=== PATIENT | female | born 1995 | race Caucasian/White ===

== ENCOUNTER 2017-03-07 22:17 | Emergency (ER) | payer OTHER ==
--- NOTE | ~2017-03-07 | CR142 ---
[facility]. [facility] A Service of [facility] & [facility] RADIOLOGY TEXT RESULTS PATIENT: MARIA DEL CARMEN SOLANO LOCATION: SED : [birth year] UNIT #: [id number] AGE: [address]: SINAI ANSARI SEX: F ORDER DR: [id number] [place] [id number] E MR#: [id number] Acc #: [id number] NAME: MARIA DEL CARMEN SOLANO : 1995 SEX: F STUDY DATE/TIME: 03/07/2017 23:42 UNIT: SED ROOM: STUDY DESCRIPTION: CR Hand Min 3 Views Rt Attending Physician: Sinai Ansari Aprn Ordering Physician: Sinai Ansari Aprn Primary Care Physician: Primary Care Physician No MEDICAL IMAGING REPORT This report is preliminary unless electronic signature is present. EXAM Right hand, 03/07/2017 HISTORY 21-year-old female in the ED complaining of right hand and wrist pain after a fall at 02:00 p.m. today. Fell on outstretched hand. TECHNIQUE Three-view right hand series. FINDINGS No fracture, dislocation or other acute osseous abnormality is demonstrated. IMPRESSION Negative right hand series. Dictated by... Win German M.D. THIS IS AN ELECTRONICALLY VERIFIED REPORT Win German M.D. at 03/08/2017 6:02 AM GURPREET/ata TD: 03/08/2017 03:52 JOB #: [id number] MEDICAL IMAGING REPORT Page 1 of 1
--- NOTE | ~2017-03-07 | CR282 ---
[facility] A Service of [facility] RADIOLOGY TEXT RESULTS PATIENT: MARIA DEL CARMEN SOLANO LOCATION: SED : 96 UNIT #: [id number] AGE: [address]: SINAI ANSARI SEX: F ORDER DR: [id number] [place] [id number] E MR#: [id number] Acc #: [id number] NAME: MARIA DEL CARMEN SOLANO : 1995 SEX: F STUDY DATE/TIME: 03/07/2017 23:42 UNIT: SED ROOM: STUDY DESCRIPTION: CR Wrist Min 3 View Rt Attending Physician: Sinai Ansari Aprn Ordering Physician: Sinai Ansari Aprn Primary Care Physician: Primary Care Physician No MEDICAL IMAGING REPORT This report is preliminary unless electronic signature is present. EXAM Right wrist series, 03/07/2017 HISTORY 21-year-old female in the ED with right hand and wrist pain after injury. Fell on outstretched hand at about 02:00 p.m. today. TECHNIQUE Three-view right wrist series. FINDINGS No fracture, dislocation or other acute osseous abnormality is demonstrated. 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 IMPRESSION Negative right wrist series. Dictated by... Win German M.D. THIS IS AN ELECTRONICALLY VERIFIED REPORT Win German M.D. at 03/08/2017 6:02 AM GURPREET/ata TD: 03/08/2017 03:53 JOB #: [id number] MEDICAL IMAGING REPORT [facility] A Service of [facility] RADIOLOGY TEXT RESULTS PATIENT: MARIA DEL CARMEN SOLANO LOCATION: SED : 96 UNIT #: [id number] AGE: [address]: SINAI ANSARI SEX: F ORDER DR: Page 1 of 1
[2017-03-07] MEDS ORDERED: NO MEDICATIONS (22:29)
== END 2017-03-08 00:38 | disposition home or self-care (01) ==
LOC: SED 22:17
DX: S56.311A Strain of extensor or abductor muscles, fascia and tendons of right thumb at forearm level, initial encounter (principal); J45.909 Unspecified asthma, uncomplicated; Z88.8 Allergy status to other drugs, medicaments and biological substances; F17.210 Nicotine dependence, cigarettes, uncomplicated; W18.30XA Fall on same level, unspecified, initial encounter; Y92.89 Other specified places as the place of occurrence of the external cause
CPT/HCPCS: 73110; 73130; 99283